=== PATIENT | male | born 1985 | race Caucasian/White ===

== ENCOUNTER 2018-03-01 06:48 | Day surgery (SDC) | payer OTHER ==
[~2018-03-01] VITALS: Ht 175.3 cm; Wt 93.0 kg
--- NOTE | ~2018-03-01 | OP ---
PATIENT NAME: JACK MOREJON MEDICAL RECORD: [id number] :87 LOCATION:[facility] ADMISSION DATE: SURGEON: SANJAY HONEYCUTT MD DATE OF OPERATION: 03/01/2018 PREOPERATIVE DIAGNOSIS: Chronic tonsillitis. POSTOPERATIVE DIAGNOSIS: Chronic tonsillitis. PROCEDURE: Tonsillectomy. SURGEON: Sanjay Honeycutt MD ANESTHESIA: General orotracheal. BLOOD LOSS: Less than 5 cc. SPECIMENS: Right and left tonsil. COMPLICATIONS: None. DISPOSITION: Recovery in stable. DESCRIPTION OF PROCEDURE: He was brought to the operating room and placed in supine position, sedated and intubated by anesthesia. The eyes were taped. The table was turned 90 degrees. Head drape was applied and he was positioned for tonsillectomy. Using a headlight, a Trae-Wilbert mouth gag was carefully inserted and elevated on a towel on his chest. The palate was examined and palpated, it was normal. The palate was retracted and mirror was used to examine the nasopharynx. There was no significant adenoid tissue. The choanae and eustachian tube orifices were normal bilaterally. The right tonsil was grasped at superior pole with a straight Allis clamp. Spatula tip cautery on a setting of 9 was used to dissect out the tonsil along its capsule, preserving the anterior and posterior tonsillar pillar. Bleeding was controlled with suction cautery on a setting of 20. The left tonsil was removed in the same fashion. After that was complete, both sides of the nose were irrigated with saline. The pharynx was suctioned. Tonsillar fossae were agitated and suction cautery on a setting of 20 was used to control minimal oozing. With the field clean and dry, the Trae-Wilbert mouth gag was let down and removed. He was awakened, extubated, and transported to recovery in good condition. No complications. TRANSINT:[id number] Voice Confirmation ID: [id number] DOCUMENT ID: [id number] SANJAY HONEYCUTT MD at 1711 CC: [id number] DICTATION DATE: 03/01/18 1316 DIP UNIT OPERATOR: 03/01/18 1332 [facility] 03/01/18 [place] [address]
--- NOTE | ~2018-03-01 | HP ---
PATIENT: EDUARDO MOREJON MEDICAL RECORD: [id number] ACCOUNT: [id number] LOCATION:[facility] : 87 ADMISSION DATE: 03/01/18 HISTORY AND PHYSICAL EXAMINATION HISTORY OF PRESENT ILLNESS: Eduardo is 32 years old. He is having problems with chronic tonsillitis, being admitted for tonsillectomy. PAST MEDICAL HISTORY: Otherwise negative. PAST SURGICAL HISTORY: None. CURRENT MEDICATIONS: None. ALLERGIES: SULFA. PHYSICAL EXAMINATION: GENERAL: Healthy-appearing, developmentally normal. FACE: Normal, symmetric, no lesions. EYES: Sclerae and conjunctivae are normal. EARS: Canals and TMs are normal. NOSE: No mass, polyps or drainage. ORAL CAVITY AND OROPHARYNX: Large cryptic tonsils bilaterally with copious tonsilliths. NECK: No masses, no adenopathy. CHEST: Clear. CARDIOVASCULAR: Regular rate and rhythm, no murmur. EXTREMITIES: Normal. IMPRESSION: Chronic tonsillitis. PLAN: Tonsillectomy. TRANSINT:[id number] Voice Confirmation ID: [id number] DOCUMENT ID: [id number] SANJAY TERESA MD at 1711 CC: [id number] DICTATION DATE: 02/26/18 1300 CROP NUTRITION SCIENTIST: 02/26/18 1339 [facility] 03/01/[address] [id number]
[2018-03-01] MEDS ORDERED: PRILOSEC2.5 MG PO (07:07)
[2018-03-01 07:12] VITALS: BP 118/68; Ht 175.3 cm; Wt 93.0 kg
== END 2018-03-01 14:40 | disposition home or self-care (01) ==
LOC: D.PAN 06:48 → D.OPS 07:30 → D.PAN 09:30
DX: J35.01 Chronic tonsillitis (principal)